=== PATIENT | female | born 1950 | race Caucasian/White ===

== ENCOUNTER 2016-06-10 01:56 | Inpatient (IN) | payer OTHER ==
[~2016-06-10] VITALS: Ht 172.7 cm; Wt 78.5 kg
[~2016-06-10 01:56] MED LIST: ALPRAZOLAM1 M2 PO; ATENOLOL25 M1 PO; ATENOLOL50 M1 PO; CYMBALTA60 M1 PO; IBU-6600 MG PO; IBUPROFEN600 M1 PO; NORVASC2.5 M1 PO; PERCOCET 325 MG1 TA2 PO; PRAVACHOL40 M1 PO; PREMPRO 0.3 MG1 EACH PO; VICODIN 5-3001 EACH PO; ZANTAC150 M1 PO; ZOFRAN4 M2 PO
--- NOTE | 2016-06-10 11:44 | RADIOLOGY REPORT ---
EXAMINATION: XR SHOULDER, LEFT CLINICAL INFORMATION: Placement of reverse left shoulder arthroplasty. COMPARISON: CT of the shoulder from 04/29/2016 TECHNIQUE: C-arm fluoroscopic imaging of the left shoulder was utilized intraoperatively. A single spot fluoroscopy image of the left shoulder is submitted into the electronic picture archive. FINDINGS: The single fluoroscopic image shows interval placement of a reverse shoulder arthroplasty. The visualized arthroplasty components are in their expected positions. FLUOROSCOPY TIME: 4 seconds. IMPRESSION: Fluoroscopic imaging of the left shoulder utilized intraoperatively during reverse shoulder arthroplasty placement.
--- NOTE | 2016-06-10 12:37 | RADIOLOGY REPORT ---
EXAMINATION: XR SHOULDER, LEFT CLINICAL INFORMATION: Status post reversal left shoulder arthroplasty COMPARISON: Fluoroscopic spot films earlier today. TECHNIQUE: Single view left shoulder. FINDINGS: The joint prosthesis appears to be in good position on this single view. IMPRESSION: Joint prosthesis in good position on this single view.
--- NOTE | 2016-06-10 12:47 | Admission Core Measures ---
Admission Meds I reviewed the following Meds: Current Medications Sig/Johnna Start time Last Medication Dose Stop Time Status Admin Alprazolam 1 MG TID PRN 06/10 1245 AC (Xanax) 06/17 1244 Amlodipine Besylate 2.5 MG DAILY 06/11 1000 AC (Norvasc) Atenolol 50 MG DAILY 06/11 1000 AC (Tenormin) Clindamycin 600 MG ONCE 06/10 0000 NR (Cleocin) 06/10 2359 Dextrose/Water 50 ML (D5W) Duloxetine HCl 60 MG DAILY 06/11 1000 AC (Cymbalta) Pravastatin Sodium 40 MG 1700 06/10 1700 AC (Pravachol) Ropivacaine 500 ML ONCE ONE 06/10 0830 AC (NAROPIN) 06/13 1949 ON-Q Ball 1 BAG Acute Coronary Syndrome Inclusion Criteria ACS Diagnosis No Inpatient Core Measures LDL Reminder: If No, please order W/I first 24hr of stay Congestive Heart Failure Inclusion Criteria CHF Diagnosis No Cerebrovascular accident Inclusion Criteria CVA/TIA Diagnosis No Inpatient Core Measures Bedside Swallow Eval Reminder: If BSE failed, place ST order Antithrombotic Reminder: Order Antithrombotic Medication by end of day 2 Antithrombotic Reminder: Document Reason Antithrombotic Not ordered by end of day 2 AFIB/Flutter Reminder: If Present, add to problem list AFIB/Flutter Reminder: Order Anticoag Medication for pts with AFIB/Flutter Atherosclerosis Reminder: If Present, add to problem list LDL Reminder: If No, please order W/I first 24hr of stay PT Order Reminder: If No, please order Venous thromboembolism Inpatient Core Measures VTE Risk Factors: Age > 40, Surgery VTE Prophylaxis Ordered Inpt [facility] Pharm No [facility] VTE prophylaxis d/t No contraindications No VTE Pharm Prophylaxis d/t No contraindications Inclusion Criteria - Per Current guidelines, there needs to be overlap - treatment for the first 5 days of Warfarin therapy. - Parenteral Anticoagulation (IV or SC) needs to be - given along with Warfarin therapy. VTE Diagnosis No VTE Type NONE VTE Confirmed by (Test) NONE Problem List As ranked by this Provider includes Assessment & Plan 1. Arthritis of shoulder region, left, degenerative HOME MEDS Home Med List Alprazolam 1 MG TABLET 1 TAB PO TID PRN ANXIETY (Reported) Amlodipine (Norvasc) 2.5 MG TABLET 1 TAB PO DAILY BP (Reported) Atenolol 50 MG TABLET 1 TAB PO DAILY BP (Reported) Atenolol 25 MG TABLET 1 TAB PO DAILY BP (Reported) Duloxetine HCl (Cymbalta) 60 MG CAPSULE.DR 1 CAP PO DAILY DEPRESSION ( Reported) Estrogen,Con/M-Progest Acet (Prempro 0.3 MG-1.5 MG Tablet) 0.3 MG-1.5 MG TABLET 1 TAB PO DAILY HORMONE (Reported) Pravastatin Sodium (Pravachol) 40 MG TABLET 1 TAB PO DAILY CHOL (Reported) Ranitidine HCl (Zantac) 150 MG TABLET 1 TAB PO BID STOMACH (Reported)
--- NOTE | 2016-06-10 12:55 | Patient Discharge Instructions ---
Discharge Instructions General Discharge Information You were seen/treated for: LEFT SHOULDER PAIN You had these procedures: LEFT REVERSE TOTAL SHOULDER REPLACEMENT Watch for these problems: INCREASING PAIN, REDNESS, WARMTH, SWELLING. DRAINAGE OF ANY TYPE FROM INCISION. FEVER GREATER THAN 101.5 Do not soak the wound: Yes No bath, but you may shower: Yes Special Instructions: AVOID USE OF YOUR LEFT ARM UNTIL FURTHER INSTRUCTED BY DR. PERKINS Diet Continue normal diet: Yes Recommended Diet: Heart Healthy Additional DIET Information: ADVANCE TOLERATED Activity Full Activity/No Limits: No Activity Self Limited: Yes Pounds, do NOT lift more than: 0 Acute Coronary Syndrome Inclusion Criteria At DC or during hospital stay patient has or had the following: ACS DIAGNOSIS No Discharge Core Measures Meds if any: Prescribed or Continued at Discharge Meds if any: NOT Prescribed or Continued at Discharge Congestive Heart Failure Inclusion Criteria At DC or during hospital stay patient has or had the following: CHF DIAGNOSIS No Discharge Core Measures Meds if any: Prescribed or Continued at Discharge Meds if any: NOT Prescribed or Continued at Discharge Cerebrovascular accident Inclusion Criteria At DC or during hospital stay patient has or had the following: CVA/TIA Diagnosis No Discharge Core Measures Meds if any: Prescribed or Continued at Discharge Meds if any: NOT Prescribed or Continued at Discharge Venous thromboembolism Inclusion Criteria VTE Diagnosis No VTE Type NONE VTE Confirmed by (Test) NONE Discharge Core Measures - Per Current guidelines, there needs to be overlap - treatment for the first 5 days of Warfarin therapy. - If discharged on Warfarin prior to 5 days of - overlap therapy, the patient will need to be - assessed for post discharge needs including - *Post discharge parental anticoagulation - *Warfarin and/or parental anticoagulation education - *Follow up date to check INR post discharge At least 5 days overlap therapy as Inpatient No Meds if any: Prescribed or Continued at Discharge Note: Overlap Therapy is Warfarin and Anticoagulant Meds if any: NOT Prescribed or Continued at Discharge
--- NOTE | 2016-06-10 13:00 | Surgical Discharge Summary ---
Visit Information Visit Dates Admission Date: 06/10/16 Discharge Date: 06/12/2016 History of Present Illness Chief Complaint: LEFT SHOULDER PAIN Medical History Neurological: NONE EENT: NONE Cardiovascular: hypertension, hyperlipidemia Respiratory: NONE Gastrointestinal: NONE Hepatic: NONE Renal: NONE Musculoskeletal: NONE Psychiatric: NONE Endocrine: NONE Blood Disorders: NONE Cancer(s): NONE CERAMIC SAW TENDER/Reproductive: NONE Surgical History Pertinent Surgical History: non-contributory Psychosocial History Who Do You Live With? Spouse Services at Home: None What is Your Primary Language? Turkmen Review of Systems: SEE H&P Hospital Course Course Attending Physician: BERNA PERKINS MD Primary Care Physician: MARYLOU CHRISTINA DO Hospital Course: PATIENT WAS ADMITTED TO HOSPITAL ON 06/10/2016 FOR AN ELECTIVE LEFT REVERSE TOTAL SHOULDER REPLACEMENT. SHE TOLERATED THE PROCEDURE WELL. SHE WAS TRANSFERRED TO GENERAL SURGICAL FLOOR. HER DIET WAS ADVANCED AND TOLERATED. HER PAIN WAS WELL CONTROLLED. HER VITAL SIGNS WERE STABLE AND WITHIN NORMAL LIMITS. SHE WAS EVALUATED AND TREATED BY OCCUPATIONAL THERAPY. SHE WAS DEEMED APPROPRIATE FOR DISCHARGE TO HOME. Allergies: Coded Allergies: amoxicillin (From Augmentin) (UNKNOWN 06/09/16) ciprofloxacin (From Cipro HC) (UNKNOWN 06/09/16) clavulanic acid (From Augmentin) (UNKNOWN 06/09/16) hydrocortisone (From Cipro HC) (UNKNOWN 06/09/16) cephalexin (Intermediate, VOMITING 06/09/16) Disposition Summary Disposition Principal Diagnosis: LEFT SHOULDER UNILATERAL PRIMARY OSTEOARTHRITIS Additional Diagnosis: NONE Discharge Disposition: home health services Discharge Instructions General Discharge Information Code Status: Full Code Patient's Diet: HEART HEALTHY, ADVANCE TOLERATED Patient's Activity: NON-WEIGHT BEARING LEFT ARM Follow-Up Instructions/Appts: PLEASE CONTACT DR. PERKINS'S OFFICE TO ARRANGE/CONFIRM FOLLOW UP APPOINTMENT. SHE WOULD LIKE FOR YOU TO BE SEEN IN HER OFFICE IN 2 WEEKS FROM DATE OF SURGERY. Medications at Discharge Discharge Medications: Continue taking these medications: Atenolol (Atenolol) 50 MG TABLET 1 Tablet ORAL DAILY Comments: Last Taken:06/12/16 Time:1100 Atenolol (Atenolol) 25 MG TABLET 1 Tablet ORAL DAILY Comments: Last Taken:06/11/16 Time:2200 Amlodipine (Norvasc) 2.5 MG TABLET 1 Tablet ORAL DAILY Comments: Last Taken:06/12/16 Time:1100 Estrogen,Con/M-Progest Acet (Prempro 0.3 MG-1.5 MG Tablet) 0.3 MG-1.5 MG TABLET 1 Tablet ORAL DAILY Comments: did not recceive in hospital Duloxetine HCl (Cymbalta) 60 MG CAPSULE.DR 1 Capsule ORAL DAILY Comments: Last Taken:06/12/16 Time:1100 Pravastatin Sodium (Pravachol) 40 MG TABLET 1 Tablet ORAL DAILY Comments: Last Taken:06/11/14 Time:1700 Ranitidine HCl (Zantac) 150 MG TABLET 1 Tablet ORAL TWICE DAILY Comments: did not receive in hospital Alprazolam (Alprazolam) 1 MG TABLET 1 Tablet ORAL THREE TIMES DAILY as needed for ANXIETY Comments: Last Taken:06/12/16 Time:1100 Aspirin (Ecotrin*) 81 MG TABLET.DR 1 Tablet ORAL TWICE DAILY Qty = 14 Ondansetron (Zofran Odt) 4 MG TAB.RAPDIS 1 Tablet SUBLINGUAL TIDP as needed for NAUSEA Qty = 10 Omeprazole Magnesium (Prilosec Otc) 20 MG TABLET. 1 Tablet ORAL DAILY Qty = 30 Start taking the following new medications: Ibuprofen (Ibuprofen) 600 MG TABLET 1 Tablet ORAL EVERY SIX HOURS NEEDED as needed for PAIN Qty = 28 No Refills Comments: did not receive in hospital Hydromorphone HCl (Dilaudid) 2 MG TABLET 1-2 Tablet ORAL Q4-6H as needed for PAIN Qty = 36 No Refills Comments: received [address] [place] [address] on 06/12/13 Aspirin (Ecotrin*) 81 MG TABLET.DR 1 Tablet ORAL TWICE DAILY Qty = 14 No Refills Comments: Last Taken:06/12/16 Time:1100 Ondansetron (Zofran Odt) 4 MG TAB.RAPDIS 1 Tablet SUBLINGUAL TIDP as needed for NAUSEA Qty = 10 No Refills Comments: received iv today at 0850 am Omeprazole Magnesium (Prilosec Otc) 20 MG TABLET.DR 1 Tablet ORAL DAILY Qty = 30 No Refills
[2016-06-10 14:00] VITALS: BP 122/76
--- NOTE | 2016-06-10 15:07 | PN- Orthopedic ---
Subjective Subjective: POST OP CHECK PATIENT RECEIVED ON GENERAL SURGICAL FLOOR, POD 0, S/P LEFT REVERSE TOTAL SHOULDER REPLACEMENT. SHE TOLERATED THE PROCEDURE WELL AND IS CURRENTLY WITHOUT COMPLAINTS. SHE STATES THAT HER PAIN IS WELL CONTROLLED. SHE DENIES CHEST PAIN, SHORTNESS OF BREATH AND DIFFICULTY BREATHING. SHE DENIES NAUSEA AND VOMITTING. Objective Vital Signs and I&Os Vital Signs Date Time Temp Pulse Resp B/P Pulse O2 O2 Flow FiO2 Ox Delivery Rate 06/10 1400 98.0 68 18 122/76 95 Room Air Physical Exam: GENERAL: ALERT AND ORIENTED X3, NO ACUTE DISTRESS CARDIAC: rrr, S1S2 PULM: CTA BILATERALLY ABDOMEN: NONTENDER, NON-DISTENDED EXTREMITIES: MOVES ALL EXTREMITIES, DISTAL SENSATION INTACT. SKIN WARM AND WELL PERFUSED. BILATERAL CALVES SOFT AND NON-TENDER SURGICAL SITE: LEFT SHOULDER. DRESSIING DRY AND INTACT. ON Q IN PLACE WITH NO EVIDENCE OF LEAKAGE. IMMOBILIZER WITH ABDUCTION PILLOW IN PLACE. DISTAL SENSATIONS INTACT. MOTOR 5/5 IN PALMAR FLEXION AND EXTENSION. RADIAL AND ULNAR PULSES PALPABLE. CAPILLARY REFILL BRISK. NO PERIPHERAL EDEMA. Assessment/Plan Assessment/Plan THIS IS A 66 YEAR OLD FEMALE, POD 0, S/P LEFT REVERSE TOTAL SHOULDER ARTHROPLASTY. PMH INCLUDES: HTN, HLD, ANXIETY -IV FLUIDS: D5 1/2 NS AT 75/HR -OOB DESIRED -NWB ON LUE -DVT PPX: ASA 81 BID, ALPS, AMBULATION -ABX: CLEOCIN 600 Q8 FOR 24 HRS -REGULAR DIET -COLACE AND MIRALAX FOR BOWEL REGIMEN -CONTINUE CURRENT PAIN REGIMEN -OT TO EVALUATE PATIENT TOMORROW -WILL D/W DR. PERKINS Core Measures/Miscellaneous Venous Thromboembolism VTE Risk Factors: Age > 40, Surgery VTE Contraindications: No Contraindications VTE Prophylaxis Ordered Inpt: Mech & Pharm VTE Diagnosis: No VTE Type: NONE VTE Confirmed by (Test): NONE Beta Malvin Is Beta Malvin a Home Med? Yes If Yes, Was This Ordered Today? Yes Antibiotics Is Patient on Antibiotics? Yes If Yes: prophylaxis
[2016-06-10 16:18] VITALS: BP 122/70
--- NOTE | 2016-06-10 19:03 | NUR ---
1350-PT ARRIVED TO FLOOR VIA STRETCHER FROM PACU. REPORT REC'D FROM MEL HERB GROWER. PT S/P L REVERSE TOTAL SHOULDER REPLACEMENT. ON Q PUMP TO INTERSCALENE AT 6ML/HR. CATHETER AT 4 CM. +RADIAL PULSE TO L UE. LUE WARM AND PT ABLE TO MOVE FINGERS WELL. ON Q DRESSING INTACT. L SHOULDER DRESSING C,D,I. BULKY BLACK SLING TO L UE IN PLACE. PT ORIENTED TO ROOM AND CALL LIGHT.
[2016-06-10 19:53] VITALS: BP 122/64
[2016-06-10 21:34] VITALS: BP 150/90
[2016-06-11 02:05] VITALS: BP 140/60
[2016-06-11 05:37] VITALS: BP 136/70
[2016-06-11 07:49] LABS: ABSOLUTE BASOPHIL COUNT 0 /CUMM (0.0-0.2); ABSOLUTE EOSINOPHIL COUNT 0 /CUMM (0.0-0.7); ABSOLUTE GRANULOCYTE CT 7.5 /CUMM (1.4-6.5); ABSOLUTE LYMPH COUNT 2.7 /CUMM (1.2-3.4); ABSOLUTE MONOCYTE COUNT 1.1 /CUMM (0.10-0.60); BASOPHIL % 0.2 % (0.0-2.0); EOSINOPHIL % 0.3 % (0-5); GRANULOCYTE % 66.1 % (42.2-75.2); HEMATOCRIT 28.2 % (37-47); MEAN CORPUSCULAR HGB 31.8 PG (27.0-31.0); MEAN CORPUSCULAR HGB CONC 33.7 G/DL (33.0-37.0); MEAN CORPUSCULAR VOLUME 94.3 FL (81.0-99.0); MEAN PLATELET VOLUME 9.4 FL (7.4-10.4); PLATELET COUNT 152 /CUMM (130-400); RBC DISTRIBUTION WIDTH 14.2 % (11.5-14.5); RED BLOOD CELL CT 2.99 /CUMM (4.20-5.40); WHITE BLOOD CELL COUNT 11.4 /CUMM (4.8-10.8)
--- NOTE | 2016-06-11 08:07 | PN- Orthopedic ---
See Addendum Subjective Subjective: Reports unable to sleep. Pain not well controlled currently. "numbness is gone". Out of bed without difficulty. No dizziness. No shortness of breath. No chest pains. Tolerating clears. No nausea. Voiding well. Objective Vital Signs and I&Os Vital Signs Date Time Temp Pulse Resp B/P Pulse O2 O2 Flow FiO2 Ox Delivery Rate 06/11 0537 97.7 65 20 136/70 92 Room Air 06/11 0205 98.1 72 20 140/60 94 Room Air 06/10 2134 97.4 89 20 150/90 93 06/10 2041 95 122/64 06/10 1953 98.3 95 20 122/64 95 06/10 1618 98.1 68 20 122/70 96 06/10 1400 98.0 68 18 122/76 95 Room Air Intake & Output 06/11 1600 06/11 0800 06/11 0000 06/10 1600 06/10 0800 06/10 0000 Intake Total 725 889 1380 Output Total 500 300 400 Balance 200 100 600 Intake, IV 600 300 400 Intake, Oral 100 100 600 Output, Urine 500 300 400 Patient 173 lb Weight Physical Exam: General - alert & oriented x 3. uncomfortable. no acute distress. Lungs - clear bilaterally. no w/r/r. Cardiac - s1s2. reg. Abdomen - soft. nontender. Extremities - left arm immobilized. left hand nvi. on q dial increased from 6 to 14. dressing c/d/i. Assessment/Plan Assessment/Plan This 66 year old female with hx htn, hld, anxiety, POD#1 s/p left reverse total should arthroplasty tolerating diet. d/c iv fluids d/c oxycodone / morphine. try oral dilaudid with iv dilaudid for breakthrough pain. increased on q dial from 6 to 14 increased toradol from 15 q8 to 30 q6 prn pain add benadryl prn sleep aid continue xanax tid continue oob/ambulation OT eval for range of motion / adls hiwot-operative antibiotics completed home meds restarted post-op, including beta malvin bowel regime ordered asa 81 mg bid and alps - dvt ppx will d/w Core Measures/Miscellaneous Venous Thromboembolism VTE Risk Factors: Age > 40, Surgery VTE Contraindications: No Contraindications VTE Prophylaxis Ordered Inpt: Mech & Pharm VTE Diagnosis: No VTE Type: NONE VTE Confirmed by (Test): NONE Beta Malvin Is Beta Malvin a Home Med? Yes If Yes, Was This Ordered Today? Yes Antibiotics Is Patient on Antibiotics? Yes If Yes: prophylaxis
[2016-06-11 12:06] VITALS: BP 130/74
--- NOTE | 2016-06-11 12:13 | Operative Report ---
Operative/Inv Procedure Report Surgery Date: 06/10/16 Name of Procedure: Left reverse total shoulder arthroplasty Pre-Operative Diagnosis: Left shoulder rotator cuff arthropathy Post-Operative Diagnosis: Left shoulder rotator cuff arthropathy Estimated Blood Loss: 150ml Surgeon/Storage Consultant: MADDIE ESPINAL,BERNA JEWELL MD, Anesthesia: general endotracheal tube, block IV Fluids: Per anesthesia record Implants: Tornier Aeualis Reversed II 25mm baseplate, long post 36mm centered glenosphere Centered reversed tray 9mm polyethylene Size 6B standard Ascend Flex stem (PTC coated) Drains: None Specimens: None Complications: None Condition: Stable Operative/Procedure Note Note: INDICATION FOR PROCEDURE: Lety Harley is a 66 year-old female who presented to clinic with ongoing left shoulder pain. She had a massive rotator cuff tear with humeral head elevation, consistent with rotator cuff arthropathy. After discussing the risks, benefits, and alternatives to surgical intervention, she has opted to proceed with left reverse total shoulder arthroplasty. OPERATIVE REPORT: Lety Harley arrived at [facility] on 06/10/2016. She was met in the pre- operative holding area, where her operative extremity was marked. A regional block was performed by the anesthesia service. She was then taken to the OR and placed supine on the table. A time-out procedure was performed and the patient and operative extremity were verified. She was then induced under general anesthesia and repositioned in the modified beachchair position. Care was taken to pad all bony prominences and support the head in a neutral position. The left upper extremity was prepped and draped in the usual sterile fashion. An incision was made over the anterior shoulder from the coracoid to the humerus in the deltopectoral interval. Medial and lateral flaps were raised until the cephalic vein was identified. The interval was open medial to the vein, and retractors placed. The conjoint tendon was identified and carefully dissected. A self-retaining retractor was placed. The fascia overlying the anterior humerus was carefully removed. The anterior circumflex arteries medial to the anatomic neck were identified and ligated. The biceps tendon was then identified and the overlying sheath opened. The biceps was tenodesed to the pectorialis major tendon, and the proximal portion up to the glenoid was removed. The patient had an intact subscapularis tendon; using an osteotome, a small amount of bone was removed from the lesser tuberosity with the subscapularis tendon. This was dissected with the anterior capsule. The patient was noted to have copious joint fluid and well and numerous loose bodies that were removed with the dissection. The anterior capsule and subscapularis were carefully dissected around the medial humeral head as the arm was externally rotated, bringing the humeral head into view. The humerus had advanced degenerative changes and surrounding osteophytes. There was no intact superior cuff. The Tornier opening reamer was placed and the head was cut. The bone was saved on the back table for future grafting. The humeral canal was sequentially reamered up to a size 7. A punch was then used to set up the broaching system, which was placed at a 20 degrees of version. We broached up to a size 6. A planar was then used, and any excess bone and rim osteophytes were removed using a rongeur. The protected cap was then placed in the broach stem. Retractors were placed around the glenoid for exposure. The remaining labrum was removed and the anterior and inferior capsule was appropriately dissected for better visualization. The posterior and inferior glenoid was noted to have several cysts, consisted with the findings seen on pre-operative imaging. These were carefully curetted out. A central pin was placed in the glenoid with 10 deg of inferior to superior tilt. The glenoid was reamed to removed any remaining cartilage, down to subchondral bone. The cysts left a void in the posterior glenoid, and there areas were filled with bone graft from the humeral head. The central peg was reamed. We opted to use a standard baseplate that sat 12mm above the inferior rim of the glenoid, but chose a longer central peg for improved stabilization given the cystic nature of the bone. This was impacted in place and noted to be stable. Peripheral screws were placed in the superior, posterior, and inferior holes, however we were not able to place an anterior screw. The corresponding central glenosphere was impacted into place. Fluoroscopy was used to verify the position of the glenoid components. The humerus was then externally rotated and the protective place removed. Trial tray and poly were placed and the shoulder reduced. The shoulder was very stable without pistoning or subluxation with rotation. The arm was taken through a full range of motion. The deltoid and conjoint tendon were not under significant tension. The shoulder was dislocated and the trials removed. Two holes were drilled in the lesser tuberosity and #2 fiberwire sutures were passed for the subscapularis repair. The shoulder was irrigated with pulse lavage and the stem and tray with impacted into position. The trial poly was used to verify the fit prior to placement of the final poly. The shoulder was reduced and again taken through a range of motion. The components were in good position and the shoulder was stable. The shoulder was again irrigated. The fiberwire sutures were used to repair the subscapularis tendon back to the region of the lesser tuberosity. The shoulder was again irrigated and hemostasis was verified. The deltopectoral interval was closed using a #2 ethibond suture. The incision was then closed in layers using 0 vicryl, 2-0 vicryl, and a running prolene with an escape stitch for the skin. The incision was secured with steri-strips and dressed with fluffs, an ABD pad, and secured with foam tape. The was placed in a sling. She was repositioned supine on the OR table and extubated. She was then taken from the OR to the recovery room in stable condition.
[2016-06-11 14:32] VITALS: BP 140/80
[2016-06-11 23:00] VITALS: BP 140/70
[2016-06-12 06:54] VITALS: BP 142/70
[2016-06-12 07:58] LABS: ABSOLUTE BASOPHIL COUNT 0 /CUMM (0.0-0.2); ABSOLUTE EOSINOPHIL COUNT 0.2 /CUMM (0.0-0.7); ABSOLUTE GRANULOCYTE CT 5.3 /CUMM (1.4-6.5); ABSOLUTE LYMPH COUNT 2.9 /CUMM (1.2-3.4); BASOPHIL % 0.5 % (0.0-2.0); EOSINOPHIL % 2.6 % (0-5); GRANULOCYTE % 55.9 % (42.2-75.2); HEMATOCRIT 27.8 % (37-47); MEAN CORPUSCULAR HGB 31.8 PG (27.0-31.0); MEAN CORPUSCULAR HGB CONC 33.4 G/DL (33.0-37.0); MEAN CORPUSCULAR VOLUME 95.2 FL (81.0-99.0); MEAN PLATELET VOLUME 9.2 FL (7.4-10.4); PLATELET COUNT 136 /CUMM (130-400); RBC DISTRIBUTION WIDTH 14.1 % (11.5-14.5); RED BLOOD CELL CT 2.92 /CUMM (4.20-5.40); WHITE BLOOD CELL COUNT 9.4 /CUMM (4.8-10.8)
[2016-06-12 11:11] VITALS: BP 142/70
[2016-06-12] MEDS ORDERED: ASPIRIN EC81 M1 PO ×2 (11:17→11:29)
[2016-06-12] MEDS ORDERED: ZOFRAN ODT4 M1 SL ×2 (11:20→11:29)
[2016-06-12] MEDS ORDERED: PRILOSEC OTC20 M1 PO ×2 (11:21→11:29)
[2016-06-12] MEDS ORDERED: IBUPROFEN600 M1 PO (11:26)
[2016-06-12] MEDS ORDERED: DILAUDID2 M1 PO (11:28)
--- NOTE | 2016-06-12 12:28 | NUR ---
Patient discharge paperwork given to her, IT issue which lead to double aspirin, zofran, and prilosec being on d/c paperwork, patient educated on the error and medications were crossed off- patient verbalizes understanding of correct doses, times, of medications. patient anxious to leave and did not wish to wait for issue to be resolved prior to discharge.
== END 2016-06-12 12:36 | DRG 483 ==
LOC: ENRESERVDT → ENRESERVTM → ENPENDDIS 01:56 → 2NA 01:56 → SDA 01:56 → 2NA 13:46
PROVIDERS: Nurse Practitioner; Physician Assistant; ADMIT Orthopaedic Surgery Sports Medicine
PROC: 0RRK00Z Replacement of Left Shoulder Joint with Reverse Ball and Socket Synthetic Substitute, Open Approach (ICD-10-PCS; principal; 2016-06-11)
DX: M19.012 Primary osteoarthritis, left shoulder (principal); I10 Essential (primary) hypertension; F41.9 Anxiety disorder, unspecified; E78.00 Pure hypercholesterolemia, unspecified; K21.9 Gastro-esophageal reflux disease without esophagitis; Z87.891 Personal history of nicotine dependence
CPT/HCPCS: 2NASP; 73030-LT; 82436; 88305; 97110-GO; 97165-GO; J1200; J1885; J2405; J2795; J3490; J7042

== ENCOUNTER 2016-07-02 10:19 | Emergency (ER) | payer OTHER ==
[~2016-07-02] VITALS: Ht 172.7 cm; Wt 80.7 kg
[~2016-07-02 10:19] MED LIST changes: +ASPIRIN EC81 M1 PO; +DILAUDID2 M1 PO; +PRILOSEC OTC20 M1 PO; +ZOFRAN ODT4 M1 SL
--- NOTE | 2016-07-02 11:57 | ED GI/GU/ABDOMINAL COMPLAINT ---
History of Present Illness General Chief Complaint: Female Urogenital Problems Stated Complaint: ? UTI Source: patient Exam Limitations: no limitations Vital Signs & Intake/Output Vital Signs & Intake/Output Vital Signs Date Time Temp Pulse Resp B/P Pulse O2 O2 Flow FiO2 Ox Delivery Rate 07/02 1501 97.0 74 18 190/72 98 Room Air 07/02 1409 180/90 07/02 1355 97.8 70 18 197/89 96 Room Air 07/02 1257 97.0 68 20 145/68 96 Room Air 07/02 1028 96.1 64 16 119/79 95 Room Air Allergies Coded Allergies: amoxicillin (From Augmentin) (UNKNOWN 06/09/16) ciprofloxacin (From Cipro HC) (UNKNOWN 06/09/16) clavulanic acid (From Augmentin) (UNKNOWN 06/09/16) hydrocortisone (From Cipro HC) (UNKNOWN 06/09/16) cephalexin (Intermediate, VOMITING 06/09/16) Triage Note: 66 Y/O FEMALE C/O URINATING MORE FREQUENTLY ("8-10 TIMES LAST NIGHT") AND HAS BEEN INCONTINENT DESPITE TAKING OXYBUTININ. TODAY WOKE UP FEELING DRY IN THE MOUTH AND "NOT MYSELF". ALSO C/O INTERMITTENT ABDOMINAL PRESSURE. AFEBRILE. Triage Nurses Notes Reviewed? yes ? n Is pt currently ? No Onset: Abrupt Duration: day(s): (few), constant, continues in ED Timing: recent history No Modifying Factors: none HPI: 66-year-old female comes into emergency room for further evaluation of urinary symptoms. Patient reports that she's been having some incontinence issues. History of bladder suspension and was on medication for that. Patient reports that she had a complete shoulder replaced a couple weeks ago and has been having the urinary symptoms for the past week. Denies any fever chills back pain. Today she felt weak and little bit dizzy and felt dehydrated. Some lower abdominal pressure/pain. Nothing seems to make the symptoms better. History of complete hysterectomy. Denies any other abdominal surgeries. Denies any chest pain shortness of breath. (EZEQUIEL RICHARDS,JAS) Reconcile Medications Alprazolam 1 MG TABLET 1 TAB PO TID PRN ANXIETY (Reported) Amlodipine (Norvasc) 2.5 MG TABLET 1 TAB PO DAILY BP (Reported) Aspirin (Ecotrin*) 81 MG TABLET.DR 1 TAB PO BID ANTICOAGULATION Atenolol 50 MG TABLET 1 TAB PO DAILY BP (Reported) Atenolol 25 MG TABLET 1 TAB PO QPM BP (Reported) Duloxetine HCl (Cymbalta) 60 MG CAPSULE.DR 1 CAP PO DAILY DEPRESSION ( Reported) Estrogen,Con/M-Progest Acet (Prempro 0.3 MG-1.5 MG Tablet) 0.3 MG-1.5 MG TABLET 1 TAB PO DAILY HORMONE (Reported) Hydromorphone HCl (Dilaudid) 2 MG TABLET 1-2 TAB PO Q4-6H PRN PAIN Meclizine HCl 25 MG TABLET 1 TAB PO TIDPRN PRN dizziness Ondansetron (Zofran Odt) 4 MG TAB.RAPDIS 1 TAB SL TIDP PRN NAUSEA Oxybutynin Chloride (Unknown Strength) TABLET (Unknown Dose) PO QPM BLADDER ( Reported) Pravastatin Sodium (Pravachol) 40 MG TABLET 1 TAB PO DAILY CHOL (Reported) Solifenacin Succinate (Vesicare) 5 MG TABLET 1 TAB PO DAILY oab (REX ESPINAL,YVES) Past History Travel History Traveled to [place] past 21 day No Medical History Any Pertinent Medical History? see below for history Neurological: NONE EENT: NONE Cardiovascular: hypertension, hyperlipidemia Respiratory: NONE Gastrointestinal: diverticulitis Hepatic: NONE Renal: NONE Musculoskeletal: degen joint disease, osteoarthritis Psychiatric: PTSD Endocrine: NONE Blood Disorders: NONE Cancer(s): NONE FOREIGN CLERK/Reproductive: NONE History of MRSA: No History of VRE: No History of CDIFF: No Influenza Vaccine: 04/18/16 Surgical History Surgical History: hysterectomy, R KNEE REPLACEMENT BLADDER UPLIFT Psychosocial History Who do you live with Spouse Services at Home None What is your primary language Hungarian Tobacco Use: Quit >30 days ago Family History Hx Contributory? No (JAS SPRAGUE) Review of Systems Review of Systems Constitutional: Reports: no symptoms. EENTM: Reports: no symptoms. Respiratory: Reports: no symptoms. Cardiovascular: Reports: see HPI. GI: Reports: no symptoms. Genitourinary: Reports: see HPI. Musculoskeletal: Reports: no symptoms. Skin: Reports: no symptoms. Neurological/Psychological: Reports: no symptoms. Hematologic/Endocrine: Reports: no symptoms. Immunologic/Allergic: Reports: no symptoms. All Other Systems: Reviewed and Negative (JAS SPRAGUE) Physical Exam Physical Exam General Appearance: well developed/nourished, no apparent distress, alert, awake Head: atraumatic, normal appearance Eyes: Bilateral: normal appearance, EOMI. Ears, Nose, Throat, Mouth: hearing grossly normal, moist mucous membrane Neck: normal inspection, full range of motion Respiratory: normal breath sounds, no respiratory distress Cardiovascular: regular rate/rhythm Gastrointestinal: soft, tenderness (suprapubic), no guarding, no rebound tenderness Back: normal inspection Extremities: normal range of motion Neurologic/Psych: no motor/sensory deficits, awake, alert, oriented x 3, normal gait, normal mood/affect Skin: intact, normal color Core Measures ACS in differential dx? No Severe Sepsis Present: No Septic Shock Present: No (JAS SPRAGUE) Progress Differential Diagnosis: AAA, AMI, appendicitis, biliary colic, bowel obstruction , cholecystitis, diverticulitis, gastritis, kidney stone, ovarian cyst, ovarian torsion, PID/cervicitis, peptic ulcer, PUD/GERD, perforated viscous, UTI/pyelo Plan of Care: Orders Procedure Date/time Status Add-on Test (ER Only) 07/02 1542 Active Add-on Test (ER Only) 07/02 1337 Active CULTURE,URINE 07/02 1216 Active TROPONIN LEVEL 07/02 1216 Complete COMPREHENSIVE METABOLIC PANEL 07/02 1156 Complete CBC WITHOUT DIFFERENTIAL 07/02 1156 Complete EKG 07/02 1156 Active URINALYSIS 07/02 1022 Complete Laboratory Tests 07/02/16 1216: Anion Gap 9, Estimated GFR > 60, BUN/Creatinine Ratio 17.1, Glucose 87, Calcium 9.3, Total Bilirubin 0.6, AST 24, ALT 24, Alkaline Phosphatase 76, Troponin I < 0.01, Total Protein 6.1 L, Albumin 3.6, Globulin 2.5, Albumin/Globulin Ratio 1.4, CBC w Diff NO MAN DIFF REQ, RBC 3.63 L, MCV 92.5, MCH 30.8, RDW 14.5, MPV 9.0, Gran % 50.3, Lymphocytes % 33.2, Monocytes % 11.1 H, Eosinophils % 4.7, Basophils % 0.7, Absolute Granulocytes 3.8, Absolute Lymphocytes 2.5, Absolute Monocytes 0.8 H, Absolute Eosinophils 0.4, Absolute Basophils 0.1, PUBS MCHC 33.3, Urinalysis LIGHT H, Urine Color YEL, Urine Clarity CLEAR, Urine pH 6.5, Ur Specific [place] <= 1.005, Urine Protein NEG, Urine Ketones NEG, Urine Nitrite NEG, Urine Bilirubin NEG, Urine Urobilinogen 0.2, Ur Leukocyte Esterase NEG, Ur Microscopic SEDIMENT EXAMINED, Urine RBC 1-3, Ur Epithelial Cells FEW, Urine Mucus FEW, Urine Hemoglobin TRACE-INTACT, Urine Glucose NEG Microbiology 07/02 1216 URINE ROUT: Urine Culture - RECD Initial ED EKG: normal intervals, normal p-waves, normal sinus rhythm, rate (58) Prior EKG: unchanged (EZEQUIEL RICHARDS,JAS) Departure Departure Disposition: HOME OR SELF CARE Condition: Stable Clinical Impression Primary Impression: Abdominal pain Secondary Impressions: Dizziness Referrals: MARYLOU CHRISTINA DO (PCP/Family) Additional Instructions: Follow-up with your primary care doctor to go over EKG results today and taken per them see her previous EKGs. You have elected to leave AGAINST MEDICAL ADVICE before I can get a copy of the EKG sent over by her doctor. Follow-up with your TEST DESIGN ENGINEER/urologist out of [place]. Call number today to make a follow-up appointment Please go over all results of today's visit with your primary care doctor. Contact your primary care doctor to let them know you were here in the emergency room. There may be nonspecific findings which may not be related to your visit today here in the emergency room but may require further evaluation and chronic monitoring by your primary care doctor. If you had a laceration today the chance of foreign body always remains. You should follow-up with your primary care doctor for recheck in 3-5 days for a wound check. If you had an x-ray done there is a chance that a fracture could have been missed on initial read and you should follow-up with your primary care doctor for repeat x-rays if symptoms persist. If your blood pressure was elevated here in the emergency room please have rechecked by her primary care doctor within the next 48 hours by your primary care doctor. If you were prescribed a narcotic here in the emergency room or any type of controlled substances you're not allowed to drive while taking this medication or operate any type of heavy machinery. Narcotics can make you feel lightheaded dizziness nausea and can cause constipation. You may need to pick up attendant a stool softener. Thank you for choosing [facility] emergency room. Please return to the emergency room immediately if you have any other concerns worsening of symptoms. Departure Forms: Customer Survey General Discharge Information Comments 07/02/2016 4:38:04 PM Patient clinically looks well. Patient is nontoxic-appearing. She is in no apparent distress here in the emergency room. Old EKG was finally obtained and appears to be unchanged. Patient has no acute abdomen on exam. No need for CT scan at this time. I contacted the patient's TEST DESIGN ENGINEER/urologist's office for scheduling a follow-up appointment with the patient in regards to her incontinence issues. Patient has no back pain complaints. Is been no recent falls or injuries to the low back. No motor deficits in lower leg. Patient able to ambulate with no difficulty. History of incontinence issues before. Likely related to patient's new medication since the surgery. Shared decision making. Patient is in agreement with plan of care. Reevaluated multiple times. Family agrees a plan of care. Case discussed with Dr. malcolm. (JAS SPRAGUE) PA/AUTOCUTTER Co-Sign Statement Statement: ED Attending supervision documentation- [] I saw and evaluated the patient. I have also reviewed all the pertinent lab results and diagnostic results. I agree with the findings and the plan of care as documented in the PA's/AUTOCUTTER's documentation. [X] I have reviewed the ED Record and agree with the PA's/AUTOCUTTER's documentation. [] Additions or exceptions (if any) to the PAs/AUTOCUTTER's note and plan are summarized below: [] (REX ESPINAL,YVES)
[2016-07-02] MEDS ORDERED: OXYBUTYNIN CHLOR5 M2 PO (12:19)
[2016-07-02 12:50] LABS: ABSOLUTE BASOPHIL COUNT 0.1 /CUMM (0.0-0.2); ABSOLUTE EOSINOPHIL COUNT 0.4 /CUMM (0.0-0.7); ABSOLUTE GRANULOCYTE CT 3.8 /CUMM (1.4-6.5); ABSOLUTE LYMPH COUNT 2.5 /CUMM (1.2-3.4); ABSOLUTE MONOCYTE COUNT 0.8 /CUMM (0.10-0.60); BASOPHIL % 0.7 % (0.0-2.0); EOSINOPHIL % 4.7 % (0-5); GRANULOCYTE % 50.3 % (42.2-75.2); HEMATOCRIT 33.5 % (37-47); MEAN CORPUSCULAR HGB 30.8 PG (27.0-31.0); MEAN CORPUSCULAR HGB CONC 33.3 G/DL (33.0-37.0); MEAN CORPUSCULAR VOLUME 92.5 FL (81.0-99.0); PLATELET COUNT 248 /CUMM (130-400); RBC DISTRIBUTION WIDTH 14.5 % (11.5-14.5); RED BLOOD CELL CT 3.63 /CUMM (4.20-5.40); WHITE BLOOD CELL COUNT 7.6 /CUMM (4.8-10.8)
[2016-07-02 15:01] VITALS: BP 190/72
[2016-07-03] MEDS ORDERED: VESICARE5 M1 PO (16:08)
[2016-07-03] MEDS ORDERED: MECLIZINE HCL25 MG PO (16:08)
== END 2016-07-02 16:22 ==
LOC: ERH 10:19
PROVIDERS: Physician Assistant Medical
DX: R10.9 Unspecified abdominal pain (principal); R42 Dizziness and giddiness
CPT/HCPCS: 81001; 87086; 93005; 93010; 96361; 96374

== ENCOUNTER 2016-07-03 12:19 | Emergency (ER) | payer OTHER ==
[~2016-07-03] VITALS: Ht 175.3 cm; Wt 79.4 kg
[~2016-07-03 12:19] MED LIST changes: +OXYBUTYNIN CHLOR5 M2 PO
--- NOTE | 2016-07-03 14:40 | ED GENERAL ADULT ---
History of Present Illness General Chief Complaint: General Adult Stated Complaint: DEHYDRATED,SEEN YEST. Source: patient, old records Exam Limitations: no limitations Vital Signs & Intake/Output Vital Signs & Intake/Output Vital Signs Date Time Temp Pulse Resp B/P Pulse O2 O2 Flow FiO2 Ox Delivery Rate 07/03 1540 98.3 51 20 189/93 97 Room Air 07/03 1232 96.7 58 16 178/81 96 Room Air Allergies Coded Allergies: amoxicillin (From Augmentin) (UNKNOWN 06/09/16) ciprofloxacin (From Cipro HC) (UNKNOWN 06/09/16) clavulanic acid (From Augmentin) (UNKNOWN 06/09/16) hydrocortisone (From Cipro HC) (UNKNOWN 06/09/16) cephalexin (Intermediate, VOMITING 06/09/16) Reconcile Medications Alprazolam 1 MG TABLET 1 TAB PO TID PRN ANXIETY (Reported) Amlodipine (Norvasc) 2.5 MG TABLET 1 TAB PO DAILY BP (Reported) Aspirin (Ecotrin*) 81 MG TABLET.DR 1 TAB PO BID ANTICOAGULATION Atenolol 50 MG TABLET 1 TAB PO DAILY BP (Reported) Atenolol 25 MG TABLET 1 TAB PO QPM BP (Reported) Duloxetine HCl (Cymbalta) 60 MG CAPSULE.DR 1 CAP PO DAILY DEPRESSION ( Reported) Estrogen,Con/M-Progest Acet (Prempro 0.3 MG-1.5 MG Tablet) 0.3 MG-1.5 MG TABLET 1 TAB PO DAILY HORMONE (Reported) Hydromorphone HCl (Dilaudid) 2 MG TABLET 1-2 TAB PO Q4-6H PRN PAIN Meclizine HCl 25 MG TABLET 1 TAB PO TIDPRN PRN dizziness Ondansetron (Zofran Odt) 4 MG TAB.RAPDIS 1 TAB SL TIDP PRN NAUSEA Oxybutynin Chloride (Unknown Strength) TABLET (Unknown Dose) PO QPM BLADDER ( Reported) Pravastatin Sodium (Pravachol) 40 MG TABLET 1 TAB PO DAILY CHOL (Reported) Solifenacin Succinate (Vesicare) 5 MG TABLET 1 TAB PO DAILY oab Triage Note: PT WAS SEEN YESTERDAY FOR ? BLADDER INFECTION. PT WAS GIVEN IV FLUIDS. PT STATES SHE IS DEHYDRATED AGAIN TODAY. PT STATES SHE HAS BEEN EATING AND DRINKING OK. PT STATES SHE FEELS NAUSEA WITH SLIGHT ABD PAIN AND IS HAVING TROUBLE FOCUSING. Triage Nurses Notes Reviewed? yes HPI: 66-year-old female approximately 3 weeks status post left total shoulder arthroplasty, returns today after being seen here yesterday for same symptoms. She feels mildly intermittent dizziness, feels urinary incontinence and frequency. Urinating large amounts, occasionally she does not make it to the bathroom in time and she urinates herself. She is having increased thirst. She does not describe koko confusion but states that she's felt a little bit"off "lately and that her gait is a little altered because of dizziness. She has history of having a bladder sling surgery at [facility] in the past and has been in contact with her urologist because of her urinary incontinence symptoms that are going on for about 10 days. She has a follow-up appointment pending. She is on oxybutynin for overactive bladder. She denies any burning with urination any back pain and a nausea vomiting fever or flulike illness. She has no abdominal pain. She has increased thirst and increased urination. She states she is drinking large amounts. She received IV fluids yesterday, a full complement of labs and an urine analysis, her urine culture is negative thus far after 1 day, no growth. (CEZAR FERNÁNDEZ) Past History Travel History Traveled to [place] past 21 day No Medical History Any Pertinent Medical History? see below for history Neurological: NONE EENT: NONE Cardiovascular: hypertension, hyperlipidemia Respiratory: NONE Gastrointestinal: diverticulitis Hepatic: NONE Renal: NONE Musculoskeletal: degen joint disease, osteoarthritis Psychiatric: PTSD Endocrine: NONE Blood Disorders: NONE Cancer(s): NONE RECREATION TEACHER/Reproductive: NONE History of MRSA: No History of VRE: No History of CDIFF: No Surgical History Surgical History: hysterectomy, R KNEE REPLACEMENT BLADDER UPLIFT, bLADDER SLING SURGERY Psychosocial History Who do you live with Spouse Services at Home None What is your primary language Botswanan Tobacco Use: Never used ETOH Use: occasional use Illicit Drug Use: denies illicit drug use Family History Hx Contributory? No (CEZAR FERNÁNDEZ) Review of Systems Review of Systems Constitutional: Reports: see HPI. EENTM: Reports: no symptoms. Respiratory: Reports: no symptoms. Cardiovascular: Reports: no symptoms. GI: Reports: no symptoms. Genitourinary: Reports: see HPI. Musculoskeletal: Reports: no symptoms. Skin: Reports: no symptoms. Neurological/Psychological: Reports: see HPI. Hematologic/Endocrine: Reports: no symptoms. Immunologic/Allergic: Reports: no symptoms. All Other Systems: Reviewed and Negative (CEZAR FERNÁNDEZ) Physical Exam Physical Exam General Appearance: well developed/nourished Comments: Well-developed well-nourished person in no acute distress HEENT: Normal EENT exam, extraocular motion intact, mild horizontal nystagmus. Limited funduscopic exam, no papilledema Pupils equally round and reactive to light. Nose is atraumatic. Pharynx normal. No swelling or edema. Neck: Supple, no lymphadenopathy, normal range of motion without pain or tenderness Back: Nontender, no CVA tenderness. Full range of motion Cardiovascular: Regular rate and rhythms no murmurs, normal JVP Respiratory: Chest nontender. No respiratory distress. Breath sounds clear to auscultation bilaterally Abdomen: Soft, nontender nondistended, no appreciable organomegaly. Normal bowel sounds. No ascites Extremity: No edema, no calf tenderness to palpation, normal and equal pulses. Neuro: Alert oriented x3, motor sensory normal, cranial nerves II through XII grossly intact. Skin: No appreciable rash on exposed skin, skin is warm and dry. Psych: Mood and affect is normal, memory and judgment is normal. Core Measures ACS in differential dx? No CVA/TIA Diagnosis: No Severe Sepsis Present: No Septic Shock Present: No (CEZAR FERNÁNDEZ) Progress Differential Diagnoses I considered the following diagnoses in my evaluation of the patient: NPH, CVA/TIA, DEHYDRATION, INFECTION, ADVERSE SIDE AFFECT FROM MEDS Plan of Care: Orders Procedure Date/time Status FingerStick- Glucose 07/03 1428 Active Diagnostic Imaging: Viewed by Me: CT Scan. Discussed w/RAD: CT Scan. Radiology Impression: PATIENT: GUMARO YAO PRESENT AGE: 66 PATIENT ACCOUNT NO: [id number] : 50 LOCATION: [facility] ORDERING PHYSICIAN: CEZAR RICHARDS SERVICE DATE: 07/03/16 EXAM TYPE: CAT - CT HEAD WO IV CONTRAST EXAMINATION: CT HEAD WITHOUT CONTRAST CLINICAL INFORMATION: Dizzy. Urinary incontinence. COMPARISON: None TECHNIQUE: Contiguous axial imaging was performed from the skull base to vertex without intravenous administration of contrast. DLP: 600.71 mGy-cm FINDINGS: There is no evidence of acute intracranial hemorrhage or territorial infarction. No abnormal mass effect or midline shift is seen. Ward to white matter differentiation is well preserved. Mild microvascular ischemic disease. No extra-axial fluid collections are identified. The ventricles are normal in size. The osseous structures and soft tissues are normal. The mastoid air cells and visualized portions of the paranasal sinuses are well aerated. IMPRESSION: No acute intracranial pathology. Mild microvascular ischemic disease. DICTATED BY: UMBERTO SR MD DATE/TIME DICTATED:07/03/16 1452 DIVERSITY SPECIALIST:SUBHASH DATE/TIME TRANSCRIBED: / Initial ED EKG: none (CEZAR FERNÁNDEZ) Departure Departure Disposition: HOME OR SELF CARE Condition: Stable Clinical Impression Primary Impression: Overactive bladder Secondary Impressions: Vertigo Referrals: MARYLOU CHRISTINA DO (PCP/Family) Additional Instructions: Start Vesicare for your overactive bladder, continue all your other medication. Take Antivert as needed for dizziness. Please follow-up with your primary care doctor if symptoms of dizziness continue. Please follow-up with your urologist for your urinary/bladder symptoms Departure Forms: Customer Survey General Discharge Information Prescriptions: Current Visit Scripts Solifenacin Succinate (Vesicare) 1 TAB PO DAILY #30 TAB Meclizine HCl 1 TAB PO TIDPRN PRN dizziness #30 TAB (CEZAR FERNÁNDEZ) PA/MACHINE HAMPER MAKER Co-Sign Statement Statement: ED Attending supervision documentation- [X] I saw and evaluated the patient. I have also reviewed all the pertinent lab results and diagnostic results. I agree with the findings and the plan of care as documented in the PA's/MACHINE HAMPER MAKER's documentation. [X] I have reviewed the ED Record and agree with the PA's/MACHINE HAMPER MAKER's documentation. [] Additions or exceptions (if any) to the PAs/MACHINE HAMPER MAKER's note and plan are summarized below: [] (BO ESPINAL,EMILY Flowers) Critical Care Note Critical Care Note Critical Care Time: non-applicable (CEZAR FERNÁNDEZ)
[2016-07-03 15:40] VITALS: BP 189/93
--- NOTE | 2016-07-03 15:50 | CT SCAN REPORT ---
EXAMINATION: CT HEAD WITHOUT CONTRAST CLINICAL INFORMATION: Dizzy. Urinary incontinence. COMPARISON: None TECHNIQUE: Contiguous axial imaging was performed from the skull base to vertex without intravenous administration of contrast. DLP: 600.71 mGy-cm FINDINGS: There is no evidence of acute intracranial hemorrhage or territorial infarction. No abnormal mass effect or midline shift is seen. Ward to white matter differentiation is well preserved. Mild microvascular ischemic disease. No extra-axial fluid collections are identified. The ventricles are normal in size. The osseous structures and soft tissues are normal. The mastoid air cells and visualized portions of the paranasal sinuses are well aerated. IMPRESSION: No acute intracranial pathology. Mild microvascular ischemic disease.
[2016-07-03] MEDS ORDERED: MECLIZINE HCL25 MG PO (16:08)
[2016-07-03] MEDS ORDERED: VESICARE5 M1 PO (16:08)
== END 2016-07-03 16:27 ==
LOC: ERH 12:19
DX: N32.81 Overactive bladder (principal); R42 Dizziness and giddiness

== ENCOUNTER 2016-10-09 05:32 | Emergency (ER) | payer OTHER ==
[~2016-10-09] VITALS: Ht 172.7 cm; Wt 74.8 kg
[~2016-10-09 05:32] MED LIST changes: +MECLIZINE HCL25 MG PO; +VESICARE5 M1 PO
[2016-10-09 05:55] VITALS: BP 148/78
--- NOTE | 2016-10-09 06:02 | ED GI/GU/ABDOMINAL COMPLAINT ---
History of Present Illness General Chief Complaint: Abdominal Pain/Flank Pain Stated Complaint: LLQ PAIN X 2 WEEKSH Source: patient Exam Limitations: no limitations Vital Signs & Intake/Output Vital Signs & Intake/Output Vital Signs Date Time Temp Pulse Resp B/P B/P Pulse O2 O2 Flow FiO2 Mean Ox Delivery Rate 10/09 0623 Room Air 10/09 0555 97.5 84 18 148/78 96 Room Air Allergies Coded Allergies: amoxicillin (From Augmentin) (UNKNOWN 06/09/16) ciprofloxacin (From Cipro HC) (UNKNOWN 06/09/16) clavulanic acid (From Augmentin) (UNKNOWN 06/09/16) hydrocortisone (From Cipro HC) (UNKNOWN 06/09/16) cephalexin (Intermediate, VOMITING 06/09/16) Reconcile Medications Alprazolam 1 MG TABLET 1 TAB PO TID PRN ANXIETY (Reported) Amlodipine (Norvasc) 2.5 MG TABLET 1 TAB PO DAILY BP (Reported) Aspirin (Ecotrin*) 81 MG TABLET.DR 1 TAB PO BID ANTICOAGULATION Atenolol 50 MG TABLET 1 TAB PO DAILY BP (Reported) Atenolol 25 MG TABLET 1 TAB PO QPM BP (Reported) Duloxetine HCl (Cymbalta) 60 MG CAPSULE.DR 1 CAP PO DAILY DEPRESSION ( Reported) Estrogen,Con/M-Progest Acet (Prempro 0.3 MG-1.5 MG Tablet) 0.3 MG-1.5 MG TABLET 1 TAB PO DAILY HORMONE (Reported) Hydromorphone HCl (Dilaudid) 2 MG TABLET 1-2 TAB PO Q4-6H PRN PAIN Meclizine HCl 25 MG TABLET 1 TAB PO TIDPRN PRN dizziness Ondansetron (Zofran Odt) 4 MG TAB.RAPDIS 1 TAB SL TIDP PRN NAUSEA Oxybutynin Chloride (Unknown Strength) TABLET (Unknown Dose) PO QPM BLADDER ( Reported) Pravastatin Sodium (Pravachol) 40 MG TABLET 1 TAB PO DAILY CHOL (Reported) Solifenacin Succinate (Vesicare) 5 MG TABLET 1 TAB PO DAILY oab Triage Nurses Notes Reviewed? yes ? n Is pt currently ? No Onset: Gradual Duration: week(s): Timing: recent history Quality/Severity: cramping Location: left lower quadrant Radiation: no radiation Activities at Onset: none Prior Abdominal Problems: similar symptoms Modifying Factors: Worsens With: movement, palpation. Associated Symptoms: abdominal pain HPI: 66 yo woman with 2-3 weeks of left lower quadrant abdominal pain. She notes, "I was dancing in my house and I think I pulled a muscle.... Now it still hurts... It hurts when I lift up my left leg when I go up the stairs... I would think it would get better, but I think it's getting better." She notes normal bowel movements, no constipation, nausea, vomiting, diarrhea, chills. She has taken ibuprofen 600mg on occasion without good effect. She is otherwise well. (FELIZ ESPINAL,LUCAS Gallego) Past History Travel History Traveled to [place] past 21 day No Medical History Any Pertinent Medical History? see below for history Neurological: NONE EENT: NONE Cardiovascular: hypertension, hyperlipidemia Respiratory: NONE Gastrointestinal: diverticulitis Hepatic: NONE Renal: NONE Musculoskeletal: degen joint disease, osteoarthritis Psychiatric: PTSD Endocrine: NONE Blood Disorders: NONE Cancer(s): NONE [employer]BILE MARKETING SPECIALIST/Reproductive: NONE History of MRSA: No History of VRE: No History of CDIFF: No Surgical History Surgical History: hysterectomy, R KNEE REPLACEMENT BLADDER UPLIFT bLADDER SLING SURGERY Psychosocial History Who do you live with Spouse Services at Home None What is your primary language Georgian Family History Hx Contributory? No (FELIZ ESPINAL,LUCAS Gallego) Review of Systems Review of Systems Constitutional: Reports: no symptoms. EENTM: Reports: no symptoms. Respiratory: Reports: no symptoms. Cardiovascular: Reports: no symptoms. GI: Reports: no symptoms. Genitourinary: Reports: no symptoms. Musculoskeletal: Reports: no symptoms. Skin: Reports: no symptoms. Neurological/Psychological: Reports: no symptoms. Hematologic/Endocrine: Reports: no symptoms. Immunologic/Allergic: Reports: no symptoms. All Other Systems: Reviewed and Negative (FELIZ ESPINAL,LUCAS Gallego) Physical Exam Physical Exam General Appearance: well developed/nourished, mild distress Head: atraumatic Eyes: Bilateral: normal appearance. Ears, Nose, Throat, Mouth: hearing grossly normal Neck: normal inspection, supple, full range of motion Respiratory: normal breath sounds, chest non-tender, no respiratory distress, quiet respiration, lungs clear Cardiovascular: regular rate/rhythm Gastrointestinal: normal bowel sounds, soft, no organomegaly, minimal tenderness to left lower quadrant to palpation. Back: normal inspection Extremities: normal range of motion, evidence of injury, pelvis stable, bony- point tenderness Neurologic/Psych: no motor/sensory deficits, awake, alert, oriented x 3, normal gait Skin: intact, normal color, warm/dry Core Measures ACS in differential dx? No Severe Sepsis Present: No Septic Shock Present: No (FELIZ ESPINAL,LUCAS Gallego) Progress Differential Diagnosis: diverticulitis vs muscle strain vs other. Plan of Care: will check labs/ct scan. Diagnostic Imaging: Viewed by Me: CT Scan. Discussed w/RAD: CT Scan. Initial ED EKG: pending Hand-Off Endorsed To: BO ESPINAL,EMILY Flowers Endorsed Time: 0700 Pending: CT, labs (FELIZ ESPINAL,LUCAS Gallego) Radiology Impression: PATIENT: GUMARO YAO PRESENT AGE: 66 PATIENT ACCOUNT NO: [id number] : 50 LOCATION: [facility] ORDERING PHYSICIAN: LUCAS PIPER MD SERVICE DATE: 10/09/16 EXAM TYPE: CAT - CT ABD & PELVIS W/O IV CONTRAS EXAMINATION: CT ABDOMEN AND PELVIS WITHOUT CONTRAST CLINICAL INFORMATION: 66-year-old female with left lower quadrant pain. COMPARISON: CT abdomen pelvis 07/18/2013 TECHNIQUE: Multidetector volumetric imaging was performed from the superior aspect of the liver through the pubic symphysis. Sagittal and coronal reformatted images were obtained on the technologist's workstation. DLP: 449.49 mGy-cm FINDINGS: Limited evaluation of solid organs and vascular structures secondary to lack of IV contrast. LUNG BASES: The visualized lung bases are clear. LIVER, GALLBLADDER, AND BILIARY TREE : The unenhanced liver is normal in size, shape, and attenuation. Similar low- attenuation lesions in the medical hepatic lobes consistent with cysts, largest measuring 2.5 cm and the right hepatic lobe (image 10, series 2). No biliary ductal dilatation is present. The gallbladder is unremarkable with no evidence of radiopaque gallstones, gallbladder wall thickening, or obvious pericholecystic inflammatory changes. PANCREAS: Unremarkable. SPLEEN: Unremarkable. ADRENAL GLANDS: Unremarkable. KIDNEYS AND URETERS: The kidneys are normal in size, shape, and attenuation. No hydronephrosis, hydroureter, or calculi seen. Stable left lateral cortical cyst with partial rim of calcification measuring 2.2 cm. No perinephric stranding. BLADDER: Unremarkable. GASTROINTESTINAL TRACT: There is no bowel obstruction, free intraperitoneal air or fluid. The appendix is within normal limits. Descending and sigmoid colon diverticulosis is noted without CT evidence of acute diverticulitis. ABDOMINAL WALL: No significant hernia is appreciated. LYMPH NODES: No mesenteric, retroperitoneal or pelvic lymphadenopathy. VASCULAR: Nonaneurysmal abdominal aorta containing moderate half of carotid calcification. PELVIC VISCERA: Status post hysterectomy. No pelvic free fluid. OSSEOUS STRUCTURES: No aggressive osseous lesions. Severe degenerative changes are noted within the lumbar spine. IMPRESSION: 1. No acute intra-abdominal or pelvic abnormality. 2. Diverticulosis without definite CT evidence of acute diverticulitis. 3. Other findings as described above. DICTATED BY: TATYANA WILSON DO DATE/TIME DICTATED:10/09/16711 POSTAL SUPERVISOR:SUBHASH DATE/TIME TRANSCRIBED:10/09/16711 CONFIDENTIAL, DO NOT COPY WITHOUT APPROPRIATE AUTHORIZATION. <Electronically signed in Other Vendor System> SIGNED BY: TATYANA WILSON DO 10/09/16 0727 Comments: Patient is feeling much better after the IV Toradol. Lab work and CAT scan results have been discussed with the patient's and questions are answered. Patient is stable for discharge. (BO ESPINAL,EMILY Flowers) Departure Departure Disposition: HOME OR SELF CARE Condition: Stable Departure Forms: Customer Survey General Discharge Information (FELIZ ESPINAL,LUCAS Gallego) Departure Clinical Impression Primary Impression: Abdominal pain Secondary Impressions: Muscle strain Referrals: MADDIE ESPINAL,MARYLOU HARPER DO (PCP/Family) Additional Instructions: TAKE FLEXERIL NEEDED FOLLOW UP WITH DR. PERKINS RETURN FOR ANY CONCERNS Prescriptions: Current Visit Scripts Cyclobenzaprine HCl 1 TAB PO TIDPRN PRN PAIN #30 TAB (BO ESPINAL,EMILY Flowers)
[2016-10-09 07:09] LABS: ABSOLUTE BASOPHIL COUNT 0 /CUMM (0.0-0.2); ABSOLUTE EOSINOPHIL COUNT 0.2 /CUMM (0.0-0.7); ABSOLUTE GRANULOCYTE CT 2.5 /CUMM (1.4-6.5); ABSOLUTE LYMPH COUNT 2.4 /CUMM (1.2-3.4); ABSOLUTE MONOCYTE COUNT 0.6 /CUMM (0.10-0.60); BASOPHIL % 0.5 % (0.0-2.0); GRANULOCYTE % 43.7 % (42.2-75.2); MEAN CORPUSCULAR HGB 31.7 PG (27.0-31.0); MEAN CORPUSCULAR VOLUME 93.1 FL (81.0-99.0); MEAN PLATELET VOLUME 8.6 FL (7.4-10.4); PLATELET COUNT 181 /CUMM (130-400); RED BLOOD CELL CT 3.54 /CUMM (4.20-5.40); WHITE BLOOD CELL COUNT 5.7 /CUMM (4.8-10.8)
--- NOTE | 2016-10-09 07:27 | CT SCAN REPORT ---
EXAMINATION: CT ABDOMEN AND PELVIS WITHOUT CONTRAST CLINICAL INFORMATION: 66-year-old female with left lower quadrant pain. COMPARISON: CT abdomen pelvis 07/18/2013 TECHNIQUE: Multidetector volumetric imaging was performed from the superior aspect of the liver through the pubic symphysis. Sagittal and coronal reformatted images were obtained on the technologist's workstation. DLP: 449.49 mGy-cm FINDINGS: Limited evaluation of solid organs and vascular structures secondary to lack of IV contrast. LUNG BASES: The visualized lung bases are clear. LIVER, GALLBLADDER, AND BILIARY TREE: The unenhanced liver is normal in size, shape, and attenuation. Similar low-attenuation lesions in the medical hepatic lobes consistent with cysts, largest measuring 2.5 cm and the right hepatic lobe (image 10, series 2). No biliary ductal dilatation is present. The gallbladder is unremarkable with no evidence of radiopaque gallstones, gallbladder wall thickening, or obvious pericholecystic inflammatory changes. PANCREAS: Unremarkable. SPLEEN: Unremarkable. ADRENAL GLANDS: Unremarkable. KIDNEYS AND URETERS: The kidneys are normal in size, shape, and attenuation. No hydronephrosis, hydroureter, or calculi seen. Stable left lateral cortical cyst with partial rim of calcification measuring 2.2 cm. No perinephric stranding. BLADDER: Unremarkable. GASTROINTESTINAL TRACT: There is no bowel obstruction, free intraperitoneal air or fluid. The appendix is within normal limits. Descending and sigmoid colon diverticulosis is noted without CT evidence of acute diverticulitis. ABDOMINAL WALL: No significant hernia is appreciated. LYMPH NODES: No mesenteric, retroperitoneal or pelvic lymphadenopathy. VASCULAR: Nonaneurysmal abdominal aorta containing moderate half of carotid calcification. PELVIC VISCERA: Status post hysterectomy. No pelvic free fluid. OSSEOUS STRUCTURES: No aggressive osseous lesions. Severe degenerative changes are noted within the lumbar spine. IMPRESSION: 1. No acute intra-abdominal or pelvic abnormality. 2. Diverticulosis without definite CT evidence of acute diverticulitis. 3. Other findings as described above.
[2016-10-09] MEDS ORDERED: CYCLOBENZAPRINE5 M2 PO (08:44)
== END 2016-10-09 08:59 ==
LOC: ERH 05:32
PROVIDERS: Pediatrics
DX: S39.011A Strain of muscle, fascia and tendon of abdomen, initial encounter (principal); X58.XXXA Exposure to other specified factors, initial encounter; Y93.41 Activity, dancing; Y92.009 Unspecified place in unspecified non-institutional (private) residence as the place of occurrence of the external cause
CPT/HCPCS: 74176; J1885